=== PATIENT | female | born 1980 | race Hispanic/Latino ===

== ENCOUNTER 2024-04-01 18:50 | Emergency (ER) | payer BC, OTHER ==
[~2024-04-01] VITALS: Ht 160 cm; Wt 63.5 kg
[2024-04-01] MEDS: 0.9%NACL 1000ML 1,000 ML IV ONE (20:24)
[2024-04-01] MEDS: ONDANSETRON 4MG INJ IVP STA (20:24)
[2024-04-01] MEDS: DiphenhydrAMINE HCL 50 MG/ML VIAL IV STA (20:25)
[2024-04-01] MEDS: PROCHLORPERAZINE 10MG/2ML INJ IV STA (20:25)
[2024-04-01 21:35] VITALS: BP 136/89; PULSE 81; RESP 17; O2SAT 96
[2024-04-01] MEDS: HYDROCODONE/ACETAMINOPHEN 5/325 MG TAB PO STA (21:56)
== END 2024-04-01 22:21 | disposition home or self-care (01) ==
LOC: EDH 18:50 → EDBD 18:50 → EDH 22:21
DX: G43.909 Migraine, unspecified, not intractable, without status migrainosus (principal); Z90.710 Acquired absence of both cervix and uterus; Z98.890 Other specified postprocedural states
CPT/HCPCS: 99284; 96374; 70450; 96375; 96361; J1200; J7030; J0780; J2405